=== PATIENT | male | born 1995 | race Caucasian/White ===

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

== ENCOUNTER 2017-10-23 03:03 | Emergency (ER) | payer OTHER ==
[2017-10-23] MEDS ORDERED: Sodium Chloride 0.9% 10 ML Syringe FLUSH PRN (03:17)
[2017-10-23] MEDS ORDERED: Sodium Chloride 0.9% 2.5 ML Syringe FLUSH PRN (03:17)
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
[2017-10-23] MEDS ORDERED: Sodium Chloride 0.9% 1,000 ML IV ONE (03:23)
[2017-10-23 03:46] LABS: CHLORIDE,CL 106 mmol/L (98-107); SODIUM,NA 142 mmol/L (136-148)
[2017-10-23] MEDS ORDERED: Ketorolac 30 MG/ML SDV IVPUSH ONE (03:57)
[2017-10-23 06:24] VITALS: BP 140/88
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
== END 2017-10-23 05:45 | disposition home or self-care (01) ==
LOC: MW.ED 03:03
DX: S22.049A Unspecified fracture of fourth thoracic vertebra, initial encounter for closed fracture (principal); S22.069A Unspecified fracture of T7-T8 vertebra, initial encounter for closed fracture; S32.039A Unspecified fracture of third lumbar vertebra, initial encounter for closed fracture; V48.6XXA Car passenger injured in noncollision transport accident in traffic accident, initial encounter
CPT/HCPCS: 72125; 72128; 72131; 80053; 80305; 81001; 83690; 85025; 85610; 96361; 96374; 99284; G0480; J1885; J7040